=== PATIENT | female | born 1945 | race Caucasian/White ===

== ENCOUNTER → 2017-07-29 | Outpatient (CLI) | payer BC ==
[~2017-07-29] MED LIST: ASCA500 PO; ASPEC81 PO; CLTP PO; CYAN10005 PO; CYM/30 PO; FLM4 PO; GLC850 PO; LISI20TA PO; METH1TAB5 PO
--- NOTE | 2017-07-29 15:35 | MAMMOGRAPHY REPORT ---
BILATERAL DIGITAL SCREENING MAMMOGRAM WITH CAD: 07/29/2017 CLINICAL HISTORY: Routine screening. TECHNIQUE: Bilateral CC and MLO views were obtained. Current study was also evaluated with a Compute r Aided Detection (CAD) system. COMPARISON: Comparison is made to exams dated: 07/26/2016 mammogram, 07/25/2015 mammogram, 07/13/2014 mammogram, 07/09/2013 mammogram, 07/08/2012 mammogram, and 07/03/2011 mammogram - [facility]. BREAST COMPOSITION: The tissue of both breasts is almost entirely fatty. FINDINGS: There are scattered bilateral benign-appearing calcifications and minimal vascular calcific ation in the breasts. No suspicious mass, architectural distortion or cluster of microcalcifications is seen. IMPRESSION: ACR BI-RADS CATEGORY 1: NEGATIVE There is no mammographic evidence of malignancy. A 1 year screening mammogram is recommended. The pa tient will receive written notification of the results. Approximately 10% of breast cancers are not detected with mammography. A negative mammographic report should not delay biopsy if a clinically suggestive mass is present. Naa Perkins M.D. ay/:07/29/2017 15:16:26 Adjunct Professor: Tee Cabezas RT(R)(M), [facility] letter sent: Normal 1/2 BI-RADS Code: ACR BI-RADS Category 1: Negative
== END | disposition home or self-care (01) ==
LOC: C.MAMM 09:21
PROVIDERS: ATTEND Internal Medicine
DX: Z12.31 Encounter for screening mammogram for malignant neoplasm of breast (principal)

== ENCOUNTER 2018-04-23 09:28 | Inpatient (IN) | payer BC, OTHER ==
[2018-04-17 10:32] VITALS: BMI 26.0
[2018-04-23] VITALS (7 sets, daily range): BP systolic 155–190; BP diastolic 68–96; PULSE 67–94; TEMP 36.5–37.2; O2SAT 91–96; Ht 160 cm; Wt 68.2 kg
[~2018-04-23] VITALS: Ht 160 cm; Wt 68.2 kg
[~2018-04-23 09:28] MED LIST changes: +ALBU18002 INH; -ASCA500 PO; -ASPEC81 PO; +ASPI-319 PO; +CALC-354 PO; +CETI10TA10 PO; +CINN500C13 PO; -CLTP PO; +FERR1TAB61 PO; -GLC850 PO; +GLIM1TAB2 PO; +GLUCTAB18 PO; +LACTATED RINGER'S 1000ML 1,000 ML IV SCH; -LISI20TA PO; +METF850T10 PO; +METH-1305 PO; -METH1TAB5 PO; +MISCCAP80 PO; +OMEP20TA PO; +VST5 PO
[2018-04-23] MEDS ORDERED: ATROPINE SULFATE 0.1 MG/ML 5ML SYR IV PRN (10:30)
[2018-04-23] MEDS ORDERED: ONDANSETRON INJ 2 MG/ML 2 ML VIAL IV PRN ×2 (10:30→15:45)
[2018-04-23] MEDS ORDERED: EpHEDrine SULFATE INJ 50 MG/ML AMP IV PRN (10:30)
[2018-04-23] MEDS ORDERED: FENTANYL CITRATE INJ 50 MCG/1 ML 2 ML VIAL IV PRN (10:30)
[2018-04-23] MEDS ORDERED: ONDANSETRON INJ 2 MG/ML 2 ML VIAL ONE (10:31)
[2018-04-23] MEDS ORDERED: GLYCOPYRROLATE INJ 0.2 MG/ML VIAL ONE (10:31)
[2018-04-23] MEDS ORDERED: MIDAZOLAM HCL 1 MG/ML 2ML VIAL ONE (10:31)
[2018-04-23] MEDS ORDERED: PROPOFOL IV EMULSION 10 MG/ML 20 ML VIAL ONE (10:31)
[2018-04-23] MEDS ORDERED: NEOSTIGMINE METHYLSULFATE 5 MG/5 ML SYR ONE (10:31)
[2018-04-23] MEDS ORDERED: DEXAMETHASONE SOD INJ 4 MG/ML VIAL ONE (10:31)
[2018-04-23] MEDS ORDERED: LIDOCAINE HCL 2% 2 ML VIAL (20MG/ML) ONE (10:31)
[2018-04-23] MEDS ORDERED: FENTANYL CITRATE INJ 50 MCG/1 ML 2 ML VIAL ONE ×2 (10:31→16:37)
--- NOTE | 2018-04-23 13:31 | History & Physical Bridge Note ---
H&P Re-Evaluation Bridge Note: I have examined the patient, reviewed the History & Physical and in the interval since the performance of the History & Physical I have noted the following changes of clinical significance: No changes noted
[2018-04-23] MEDS ORDERED: SODIUM CHLORIDE 0.9% PF 50 ML VIAL ONE (13:34)
[2018-04-23] MEDS ORDERED: BUPIVACAINE LIPOSOME 1/3% 266 MG/20 ML VIAL ONE ×2 (13:34→14:12)
[2018-04-23] MEDS ORDERED: BUPIVACAINE 0.25% 30 ML VIAL ONE (13:34)
[2018-04-23] MEDS ORDERED: CEFAZOLIN SOD 1 GM VIAL ONE (14:19)
[2018-04-23] MEDS ORDERED: ROCURONIUM BROMIDE 10 MG/ML 5 ML VIAL ONE (15:14)
--- NOTE | 2018-04-23 15:27 | [facility] Post Operative Brief Note ---
Immediate Operative Summary Operative Date Apr 23, 2018. Pre-Operative Diagnosis Anterior mediastinal mass Post-Operative Diagnosis Same Procedure(s) Performed Robotic Assisted Right Video Thoracoscopy with Resection of Mediastinal Mass / thymectomy Surgeon Dr Scruggs Case Technician Surgeon(s) Daniel Maldonado PA-C Estimated Blood Loss 5ml Findings Consistent with Post-Op Diagnosis Specimens A. R3 lymph node Frozen section #1 anterior mediastinal mass, thymus sent out at 1520 Anesthesia Type General
[2018-04-23] MEDS: METOCLOPRAMIDE HCL INJ 5 MG/ML 2 ML VIAL IV. STA ×2 (15:35→16:35)
[2018-04-23] MEDS ORDERED: ALBUTEROL HFA 8 GM INHALER INH PRN (15:45)
[2018-04-23] MEDS ORDERED: MoRPHine SULFATE 2 MG/ML CARP IV PRN (15:45)
[2018-04-23] MEDS ORDERED: OXYCODONE HCL IR 5 MG TAB (IMMEDIATE RELEASE) PO PRN (15:45)
[2018-04-23] MEDS ORDERED: PHENYLEPHRINE 100MCG/ML 5ML SYR ONE (15:51)
--- NOTE | 2018-04-23 16:16 | DIAGNOSTIC IMAGING REPORT ---
CHEST ONE VIEW PORTABLE CLINICAL HISTORY: thymectomy postoperative evaluation COMPARISON STUDY: 03/21/2018 FINDINGS: Right-sided chest tube in good position. No significant postprocedural pneumothorax. Platelike atelectasis right upper lung. Slight interstitial change left base. IMPRESSION: Unremarkable postoperative chest. Plate like atelectasis right upper lung. Mild interstitial change left base. The above report was generated using voice recognition software. It may contain grammatical, syntax or spelling errors. Electronically signed by: Jair Salinas M.D. 04/23/2018 4:14 PM Dictated Date/Time: 04/23/2018 4:13 PM
[2018-04-23] MEDS ORDERED: HydrALAZINE HCL 20 MG/ML VIAL ONE (16:19)
[2018-04-23] MEDS ORDERED: HydrALAZINE HCL 20 MG/ML VIAL IV. STA (16:22)
--- NOTE | 2018-04-23 17:21 | Anesthesiology Progress Note ---
Anesthesia Post Op Note Date & Time Apr 23, 2018 at 17:21 Vital Signs Pain Intensity: 2 Vital Signs Past 12 Hours Date Time Temp Pulse Resp B/P (MAP) Pulse Ox O2 Delivery O2 Flow Rate FiO2 04/23/18 17:00 36.6 82 15 170/93 95 Nasal Cannula 2 Oxymask 04/23/18 16:50 63 13 166/71 95 Nasal Cannula 2 Oxymask 04/23/18 16:40 61 15 180/71 95 Nasal Cannula 2 Oxymask 04/23/18 16:30 63 19 192/78 93 Nasal Cannula 2 Oxymask 04/23/18 16:20 59 13 196/79 99 Oxymask 10 04/23/18 16:10 59 12 196/82 99 Oxymask 10 04/23/18 16:00 70 13 193/81 95 Oxymask 10 04/23/18 15:53 36.1 75 13 184/75 98 Oxymask 10 04/23/18 10:09 36.9 87 18 190/96 96 Room Air Notes Mental Status: alert / awake / arousable, participated in evaluation Pt Amnestic to Procedure: Yes Nausea / Vomiting: adequately controlled Pain: adequately controlled Airway Patency, RR, SpO2: stable & adequate BP & HR: stable & adequate Hydration State: stable & adequate Anesthetic Complications: no major complications apparent
--- NOTE | 2018-04-23 17:33 | OPERATIVE REPORT ---
DATE OF OPERATION: 04/23/2018 PREOPERATIVE DIAGNOSIS: Anterior mediastinal mass. 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 PROCEDURE: Robot-assisted right thoracoscopic excision of anterior mediastinal mass/thymectomy. SURGEON: New Scruggs MD RN SANE: CHRIS Alcantar (Ms. Maldonado was present the entire case, was at the patient's bedside while I was at the console, He also closed the skin incisions at conclusion.) ANESTHESIA: General anesthesia endotracheal intubation using a double lumen tube. SPECIFICS OF PROCEDURE AND FINDINGS: Deborah Galvin is a 72-year-old female who I was asked to see when she underwent a CT scan as part of workup when she was hospitalized and was found to have an anterior mediastinal mass. She went home and is improved and she has no symptoms from this. I saw her back and we have planned for surgery. I had a long talk with the patient in the office and in the hospital. On 04/23/2018, the patient underwent an uncomplicated robot-assisted right thoracoscopy with excision of this mass. We lost no blood. 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 It was completely encapsulated. I removed most of the thymus with this. She tolerated it well. She was extubated in the room. DESCRIPTION OF PROCEDURE: The patient was brought to the operating room and laid in supine position. General anesthesia induced and endotracheal intubation was performed with a double lumen tube. The patient was placed in the left lateral decubitus position. Right chest prepped and draped in usual sterile fashion. Appropriate antibiotics given and timeout taken. An incision was made at about the seventh interspace in the anterior axillary line and the inframammary crease. A 5-Estonian trocar was placed and then a 5 mm camera was placed and it could be seen we were in the pleural cavity. Carbon dioxide was insufflated. This isolated the lung quite nicely. We then placed a port at about the third interspace just above the breast and just anterior to the axilla. We also placed one in the mid axillary line. This is a 12 mm camera port. Placed a 12 mm assistance port in about the ninth interspace. Upon going in, I immediately picked up the thymus and using a cautery and retraction, I simply removed it off of the pericardium without difficulty. Then, I went up and pulled and completely unroofed this off of the aorta. We got up to the innominate vein. This mass was seen to be circumscribed and hard. I then divided the thymic fat and anterior mediastinal fat from the phrenic nerve on the right and peeled this all the way off. We really got into no bleeding. We then placed a 24-Estonian chest tube through the anterior port site directed to the apex. This was held on heavy silk suture. All of the ports were then removed. The chest tube was held in place with heavy silk suture, but 4-0 Monocryl was used to close all the port sites. She tolerated it very well. She was extubated in the room. We had negligible blood loss. She did not have an air leak at conclusion of the case. I attest to the content of the Intraoperative Record and any orders documented therein. Any exception s are noted below.
[2018-04-23] MEDS: ACETAMINOPHEN IV 1,000 MG in EMPTY BAG 0 ML IV SCH (18:55)
[2018-04-23] MEDS: INSULIN ASPART 100 UNITS/ML 3 ML PEN SC SCH ×2 (19:02→21:15)
[2018-04-23] MEDS ORDERED: TAMSULOSIN HCL 0.4 MG CAP PO SCH (21:00)
[2018-04-23] MEDS ORDERED: ASPIRIN 81 MG ECTAB PO SCH (21:00)
[2018-04-23] MEDS ORDERED: NON-FORMULARY MEDICATION (Glucosamine-Chondroitin (Osteo Bi-Flex Regular Str) 1 TAB) PO SCH (21:00)
[2018-04-23] MEDS ORDERED: CETIRIZINE HCL 10 MG TAB PO SCH (21:00)
[2018-04-23] MEDS ORDERED: CINNAMON 1000 MG PO SCH (21:00)
[2018-04-23] MEDS: DOCUSATE SODIUM 100 MG CAP PO SCH (21:12)
[2018-04-23] MEDS: METHENAMINE HIPPURATE 1 GM TAB PO SCH (21:12)
[2018-04-23] MEDS: METOCLOPRAMIDE HCL INJ 5 MG/ML 2 ML VIAL IV. SCH (23:46)
[2018-04-23] MEDS: SODIUM CHLORIDE 0.9% 1000ML 1,000 ML IV SCH (23:46)
[2018-04-24 01:15] VITALS: BP 139/78; PULSE 83; TEMP 36.9; O2SAT 93
[2018-04-24] MEDS ORDERED: NURSING DECISION MEDICATION ORDER SCH (01:15)
[2018-04-24] MEDS: ACETAMINOPHEN IV 1,000 MG in EMPTY BAG 0 ML IV SCH (02:06)
[2018-04-24 03:30] VITALS: BP 139/70; PULSE 84; TEMP 36.9; O2SAT 94
[2018-04-24] MEDS: SODIUM CHLORIDE 0.9% 1000ML 1,000 ML IV SCH (05:05)
[2018-04-24 05:53] VITALS: BP 139/75; PULSE 76; TEMP 36.8; O2SAT 97
[2018-04-24 06:17] LABS: HEMATOCRIT 36.1 % (37-47); MEAN CELL VOLUME 84.9 fL (80-100); MEAN CORPUSCULAR HEMOGLOBIN 28.2 pg (25-34); MEAN CORPUSCULAR HGB CONC 33.2 g/dl (32-36); MEAN PLATELET VOLUME 8.7 fL (7.4-10.4); PLATELET COUNT 191 K/uL (130-400); RED CELL DISTRIBUTION WIDTH CV 13.6 % (11.5-14.5); RED CELL DISTRIBUTION WIDTH SD 42.2 fL (36.4-46.3); WHITE BLOOD COUNT 11.89 K/uL (4.8-10.8)
[2018-04-24 06:45] LABS: CREATININE 0.89 mg/dl (0.60-1.20)
--- NOTE | 2018-04-24 07:33 | DIAGNOSTIC IMAGING REPORT ---
CHEST ONE VIEW PORTABLE CLINICAL HISTORY: 72 years-old Female presenting with thymectomy . TECHNIQUE: Portable upright AP view of the chest was obtained. COMPARISON: 04/23/2018. FINDINGS: Large bore right pleural drain terminates at the right apex. Cardiomediastinal silhouette top normal in size. Bandlike opacity at the left lung base and persistent focal opacity in the right upper lung. No right pneumothorax. No large effusion. Soft tissue emphysema noted at the right base of the neck. Degenerative changes of the thoracic spine. Upper abdomen normal. IMPRESSION: 1. Right pleural drain remains in place. No pneumothorax. 2. Unchanged opacities in the right upper lung and left lung base. No new infiltrate. 3. Borderline cardiomegaly. Electronically signed by: Robert Jade M.D. 04/24/2018 7:32 AM Dictated Date/Time: 04/24/2018 7:30 AM
[2018-04-24 07:53] VITALS: BP 162/77; PULSE 80; TEMP 36.8; O2SAT 95
[2018-04-24] MEDS: METOCLOPRAMIDE HCL INJ 5 MG/ML 2 ML VIAL IV. SCH (08:25)
[2018-04-24] MEDS: DOCUSATE SODIUM 100 MG CAP PO SCH (08:30)
[2018-04-24] MEDS: METHENAMINE HIPPURATE 1 GM TAB PO SCH (08:30)
[2018-04-24] MEDS ORDERED: CLC100 PO (08:40)
[2018-04-24] MEDS ORDERED: ULT/50 PO (08:40)
--- NOTE | 2018-04-24 08:44 | Discharge Instructions ---
Discharge Instructions Date of Service Apr 24, 2018. Admission Reason for Admission: Mediastinal Mass, Diabetes Discharge Discharge Diagnosis / Problem: Mediastinal Mass Discharge Goals Goal(s): Learn about illness Activity Recommendations Activity Limitations: as noted below Lifting Limitations: none 1. You may remove dressing in 3 days and shower thereafter. No tub baths. 2. Do not drive until cleared to do so by Dr. Scruggs. 3. DO not fly until cleared to do so by Dr. Scruggs. . Instructions / Follow-Up Instructions / Follow-Up 1. Office appointment with Dr. Scruggs in 1 week. Office will call you with date and time of appointment. Go to hospital 1 hour before appointment to have a chest-ray taken. Current Hospital Diet Patient's current hospital diet: Diabetes Type 2 Diet Discharge Diet Recommended Diet: Diabetes Type 2 Diet Procedures Procedures Performed: Robotic Assisted Right Video Thoracoscopy with Resection of Mediastinal Mass / thymectomy Pending Studies Studies pending at discharge: no Medical Emergencies . Who to Call and When: Medical Emergencies: If at any time you feel your situation is an emergency, please call 911 immediately. . Non-Emergent Contact Non-Emergency issues call your: Surgeon Call Non-Emergent contact if: you have a fever, your pain is not controlled, wound has increased drainage . "Provider Documentation" section prepared by Brayden Maldonado. .
[2018-04-24] MEDS ORDERED: ACETAMINOPHEN 325 MG TAB PO SCH (08:45)
[2018-04-24] MEDS ORDERED: ENOXAPARIN 40 MG/0.4 ML SYR SQ SCH (09:00)
[2018-04-24] MEDS ORDERED: DULOXETINE (CYMBALTA) 30 MG CAP PO SCH (09:00)
[2018-04-24] MEDS ORDERED: PANTOprazole SOD 40 MG TAB PO SCH (09:00)
[2018-04-24] MEDS ORDERED: ENALAPRIL MALEATE 5 MG TAB PO SCH (09:00)
[2018-04-24] MEDS ORDERED: FERROUS SULFATE 325 MG TAB PO SCH (09:00)
[2018-04-24] MEDS ORDERED: CYANOCOBALAMIN 500 MCG TAB (VIT B-12) PO SCH (09:00)
[2018-04-24] MEDS ORDERED: LACTOBACILLUS ACIDOPHILUS (FLORANEX) TAB PO SCH (09:00)
[2018-04-24] MEDS ORDERED: GLIMEPIRIDE 2 MG TAB PO SCH (09:00)
--- NOTE | 2018-04-24 09:12 | DIAGNOSTIC IMAGING REPORT ---
CHEST ONE VIEW PORTABLE CLINICAL HISTORY: 72 years-old Female presenting with tube removal . TECHNIQUE: Portable upright AP view of the chest was obtained. COMPARISON: 04/24/2018. FINDINGS: Interval removal of the right pleural drain. Soft tissue emphysema again noted at the right base of the neck and minimally along the right chest wall. Atherosclerosis of the thoracic aorta. Cardiac silhouette normal in size. Opacities at the left lung base and right upper lung unchanged. No right pneumothorax. Right lung clear. Degenerative changes of the thoracic spine. Upper abdomen normal. IMPRESSION: 1. Removal of the right pleural drain. No right pneumothorax. Electronically signed by: Robert Jade M.D. 04/24/2018 9:10 AM Dictated Date/Time: 04/24/2018 9:09 AM
[2018-04-24] MEDS: INSULIN ASPART 100 UNITS/ML 3 ML PEN SC SCH ×2 (09:35→12:06)
[2018-04-24 09:47] VITALS: BP 162/77; PULSE 80; TEMP 36.8; O2SAT 95
[2018-04-25] MEDS ORDERED: CALCIUM 600MG + VIT D 400 IU TAB PO SCH (09:00)
--- NOTE | 2018-04-30 06:08 | EDITING REQUIRED CODING QUERY ---
PATHOLOGY To promote full compliance with coding requirements relating to patient care, physician participation is requested in all cases of aggregate conveyor operator uncertainty. Please assist us with the question(s) below: Please review the Pathology report and please document any relevant diagnosis(es) below: Diagnosis(es): Thymoma Thank you! Glo Thurman
--- NOTE | 2018-05-01 21:40 | DISCHARGE SUMMARY ---
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 HOSPITAL COURSE: This is a delightful 72-year-old female that I met in the hospital when she was hospitalized with probable anaplasmosis. At any rate, she responded well and she looks very good, but CT scan was obtained of her chest and she was found to have a mass in her anterior mediastinum. It was rather small. We had a long discussion about this and I felt that resecting this would be the most prudent course of action. On 04/23/2018, the patient underwent an uncomplicated robot-assisted thoracoscopic excision of this anterior mediastinal mass. Frozen section was suspicious for a spindle cell thymoma. The patient did very well with this. We had essentially no blood loss. She had no air leak and she looked very good after surgery. Following morning, she looks very good, really no pain. Pulled her chest tube. Her incisions are clean. She is ambulating in the hallway. She was voiding well and was eating well. Her pain control was exceptional. We discharged her home. I will see her back in a week to go over final pathology results.
== END 2018-04-24 12:15 | disposition home or self-care (01) | DRG 804 ==
LOC: C.ACU 09:28 → C.MSN 13:30 → EDBEDREQ 16:32 → ENRESERV 17:03 → C.MSN 17:53
PROVIDERS: ADMIT Surgery; ATTEND Surgery
PROC: 8E0W4CZ Robotic Assisted Procedure of Trunk Region, Percutaneous Endoscopic Approach (ICD-10-PCS; principal; 2018-04-23 11:20)
PROC: 07B Lymphatic and Hemic Systems, Excision (ICD-10-PCS; principal; 2018-04-23 11:20)
DX: D15.0 Benign neoplasm of thymus (principal); E11.9 Type 2 diabetes mellitus without complications; Z87.891 Personal history of nicotine dependence; Z79.82 Long term (current) use of aspirin; Z79.899 Other long term (current) drug therapy

== ENCOUNTER → 2018-04-29 | Outpatient (CLI) | payer BC ==
[~2018-04-29] MED LIST changes: +CLC100 PO; -LACTATED RINGER'S 1000ML 1,000 ML IV SCH; +ULT/50 PO
--- NOTE | 2018-04-29 09:02 | DIAGNOSTIC IMAGING REPORT ---
CHEST 2 VIEWS ROUTINE CLINICAL HISTORY: Mediastinal mass. COMPARISON STUDY: Chest radiograph April 24, 2018. FINDINGS: There is no pneumothorax. There is a possible trace right pleural effusion. Linear left basilar opacity suggestive atelectasis. There is no evidence for pneumonia or pulmonary edema. Subcutaneous gas within the wall and neck has slightly diminished since exam of April 24, 2018. IMPRESSION: 1. No pneumothorax. Trace right pleural effusion. 2. Interval decrease in chest wall and neck subcutaneous gas. Electronically signed by: Lalito Niño M.D. 04/29/2018 9:01 AM Dictated Date/Time: 04/29/2018 8:58 AM
== END | disposition home or self-care (01) ==
LOC: C.RAD 08:25
PROVIDERS: ATTEND Surgery
DX: J98.59 Other diseases of mediastinum, not elsewhere classified (principal)

== ENCOUNTER 2019-07-04 08:49 | Inpatient (IN) ==
[2019-07-04] MEDS ORDERED: HYDROCODONE/ACETAMOPHEN 5/325MG TAB PO ONE (11:15)
[2019-07-04] MEDS ORDERED: ONDANSETRON 4 MG OD TAB PO STA (11:17)
[2019-07-04] MEDS: LIDOCAINE 5% 1 PATCH TD SCH (11:27)
[2019-07-04] MEDS ORDERED: IOVERSOL 100ml IV PRN (12:04)
[2019-07-04 12:05] LABS: iSTAT Creatinine 0.9 mg/dl (0.6-1.3); iSTAT Hemoglobin 13.3 g/dl (12.0-16.0); iSTAT Ionized Calcium 1.21 mmol/l (1.12-1.32)
--- NOTE | 2019-07-04 12:09 | Emergency Department Note ---
History of Present Illness General Chief complaint: Fall Stated complaint: FELL DOWN STAIRS, LT SIDE BACK PAIN, HIT HEAD History of Present Illness Maximum Pain Intensity: 10 This patient is a 73-year-old female who presents amatory to the emergency department for evaluation of posterior rib and back pain after a fall that occurred last night. The patient slipped on wooden stairs striking her back against the stairs when she fell. She is unsure if she hit her head. She did report feeling foggy afterwards. The patient does not take any anticoagulation. She took Aleve this morning with minimal pain relief. The pain in her back is sharp and stabbing in nature. Worse with deep inspiration. She denies any abdominal pain. No pain in her extremities. Home Medications Home Medications Medication Instructions Recorded Confirmed Type Caltrate 600 plus D 1 tab PO 3XWK 01/06/19 07/04/19 History Probiotic 3,000 mmu cells PO DAILY 01/06/19 07/04/19 History albuterol sulfate [ProAir HFA] 2 puff INHALATION QID PRN 01/06/19 07/04/19 History cinnamon bark [Cinnamon] 2 tab PO BID 01/06/19 07/04/19 History cyanocobalamin (vitamin B-12) 1,000 mcg PO DAILY 01/06/19 07/04/19 History duloxetine 30 mg PO QAM 01/06/19 07/04/19 History glimepiride 1 mg PO QAM 01/06/19 07/04/19 History glucosamine-chondroitin [Osteo 1 tab PO BID 01/06/19 07/04/19 History Bi-Flex] iron 130 mg PO DAILY 01/06/19 07/04/19 History metformin 850 mg PO BID 01/06/19 07/04/19 History methenamine hippurate 1 g PO BID 01/06/19 07/04/19 History omeprazole 20 mg PO QAM 01/06/19 07/04/19 History tamsulosin [Flomax] 0.4 mg PO DAILY 01/06/19 07/04/19 History aspirin 81 mg chewable tablet 81 mg PO QAM tab 06/05/19 07/04/19 History cetirizine [Zyrtec] 10 mg PO HS 07/04/19 07/04/19 History enalapril maleate [Vasotec] 5 mg PO DAILY 07/04/19 07/04/19 History Allergies Allergy/AdvReac Type Severity Reaction Status Date / Time simvastatin Allergy Intermediate LOSS Verified 06/09/19 10:33 MUSCLE TONE AND PAIN Psfrepb-Lzz-[id number] Reductase Allergy Intermediate LOSS OF Verified 06/09/19 10:33 Inhibitor MUSCLE TONE gabapentin Allergy Mild DIZZY, Verified 06/09/19 10:33 LISTLESS rofecoxib Allergy Mild DIZZY AND Verified 06/09/19 10:33 LISTLESS Sulfa (Sulfonamide Allergy Unknown CAN'T Verified 06/09/19 10:33 Antibiotics) REMEMBER Past Med/Surg History Medical History Anemia HX OF Anxiety Bulging disc Cancer THYMUS GLAND REMOVAL Diabetes mellitus, type 2 GERD (gastroesophageal reflux disease) Hyperlipidemia Hypertension HX OF Osteoarthritis Restless leg syndrome Surgical History H/O abdominal surgery TUBAL (REMOVED) History of cataract surgery LEFT History of colonoscopy History of endoscopic sinus surgery POLYPS REMOVED History of esophagogastroduodenoscopy (EGD) History of herniorrhaphy History of hysterectomy History of repair of rotator cuff RT History of surgery THYMUS GLAND REMOVAL History of tooth extraction Family History Mother Family history of diabetes mellitus Uncle Family hx of colon cancer Social History Preferred Language: Afghan Communication Ability: 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 Equipment Required: No Beliefs That Will Affect Care: None Current Living Situation: Alone Current Living Situation Comment: [facility] [employer] Other Information That Helps Us Care for You: No Feels Safe at Home: Yes Safety Concerns: Feels Safe At This Time Smoking Status: Former smoker Cigarettes Per Day: 10 ; Do You Dip or Chew T obacco: No ; Second Hand Exposure: No ; Hx Alcohol Use: No Hx Substance Use: No Review of Systems A total of 10 systems reviewed and were otherwise negative Physical Exam Vital Signs Vital Signs - 24 hr 07/04/19 08:57 07/04/19 11:04 07/04/19 13:37 Temperature 36.9 C Temperature Source Oral Sepsis Recent Fever Within 48 Hours No Sepsis Action Taken by Nursing No Action Required Pulse Rate 94 H Pulse Rate [Right Finger] 95 H 82 Pulse Rhythm [Right Finger] Regular Pulse Strength [Right Finger] Normal Respiratory Rate 20 20 18 Respiratory Effort / Characteristics Non-Labored Non-Labored Spontaneous Respiratory Depth Normal Normal Blood Pressure 187/80 H Blood Pressure [Right Arm] 148/82 H 132/79 Blood Pressure Mean 115 Blood Pressure Mean [Right Arm] 104 96 Blood Pressure Position [Right Arm] Sitting Pulse Oximetry 95 95 94 Oxygen Delivery Method Room Air Room Air Room Air Constitutional WD/WN, vitals as above Eyes EOM intact bilaterally ENMT external ear and nose normal, oropharynx normal Neck trachea midline Respiratory normal respiratory effort, lungs clear to auscultation Cardiovascular RRR, no murmur, no edema Gastrointestinal (Abdomen) normal bowel sounds, soft, nontender, no hepatosplenomegaly Musculoskeletal no cyanosis or clubbing, extremities motor strength 5/5 Tenderness to palpation noted over the left posterior mid rib cage. No crepitus noted. There is ecchymosis noted to the left flank. Skin no rashes, warm and dry Neurologic Alert and oriented x3. No focal motor deficits. No dooley signs or raccoon eyes. Psychiatric Acting appropriately Course The patient was seen and examined She was ordered [place] and Zofran for pain. She was also given a Lidoderm patch. Labs were collected. A saline lock was established. Imaging was performed and reviewed Upon reevaluation, the patient was more comfortable. We reviewed her results. She voiced understanding The patient was also seen and examined by my supervising physician I spoke with thoracic surgery in addition to the hospitalist service. They kindly agreed to evaluate the patient for possible inpatient management. Consultations Consultation #1: Dr. Scruggs Consultation #2: [facility] hospitalist service Administered Medications Cetirizine HCl (Zyrtec) 10 mg PO HS MAURICIO Stop: 08/03/19 20:59 Last Admin: 07/04/19 20:27 Dose: 10 mg Documented by: [id number] Hydromorphone HCl (Dilaudid) 0.5 mg IV Q4H PRN PRN Reason: Pain Stop: 07/18/19 15:43 Last Admin: 07/04/19 17:15 Dose: 0.5 mg Documented by: [id number] Insulin Aspart (Novolog Flexpen) 0 units SC ACHS MAURICIO Stop: 08/03/19 16:29 Last Admin: 07/04/19 20:49 Dose: Not Given Documented by: [id number] Cosigned by: [id number] Admin: 07/04/19 17:20 Dose: 7 units Documented by: [id number] Cosigned by: [id number] Ioversol (Optiray 320 100ml) 94 ml IV ONCE PRN PRN Reason: Interaction Checking Stop: 07/08/19 12:03 Last Admin: 07/04/19 12:05 Dose: 94 ml Documented by: [id number] Lidocaine (Lidoderm 5%) 1 patch TD QAM MAURICIO Stop: 08/03/19 11:14 Last Admin: 07/04/19 11:27 Dose: 1 patch Documented by: [id number] Methenamine Hippurate (Urex) 1 gm PO BID MAURICIO Stop: 08/03/19 20:59 Last Admin: 07/04/19 20:27 Dose: 1 gm Documented by: [id number] Miscellaneous (Remove Lidoderm Patch) 1 ea N/A DAILY@2100 [facility] Stop: 08/03/19 20:59 Last Admin: 07/04/19 20:27 Dose: 1 ea Documented by: [id number] Oxycodone/Acetaminophen (Percocet 5mg/325mg) 1 tab PO Q6H PRN PRN Reason: Pain Stop: 07/18/19 18:28 Last Admin: 07/04/19 20:26 Dose: 1 tab Documented by: [id number] Discontinued Medications Hydrocodone Bitart/Acetaminophen ([place] 5/325) 1 tab PO ONE ONE Stop: 07/04/19 11:16 Last Admin: 07/04/19 11:27 Dose: 1 tab Documented by: [id number] Ondansetron HCl (Zofran Odt) 4 mg PO NOW STA Stop: 07/04/19 11:18 Last Admin: 07/04/19 11:27 Dose: 4 mg Documented by: [id number] Medical Decision Making Medical Records Attestation: I reviewed the patient's medical records. Home Medications Current Medication List: was personally reviewed by me Laboratory Data Attestation: I reviewed the patient's lab results. Result diagrams: 07/04/19 14:53 Lab Results 07/04/19 07/04/19 07/04/19 Range/Units 11:45 14:14 14:14 POC Hgb 13.3 (12.0-16.0) g/dl POC Hct 39 (37-47) % PT 9.6 Cancelled (9.0-12.0) Seconds INR 0.9 Cancelled (0.9-1.1) POC Sodium 139 (135-144) mEq/L POC Potassium 4.0 (3.3-5.0) mEq/L POC Chloride 102 (101-112) mEq/L POC Total CO2 25 (24-31) mEq/l POC Anion Gap 17.0 (16-25) mmol/L POC BUN 23 H (7-18) mg/dl POC Creatinine 0.9 (0.6-1.3) mg/dl POC Glucose (other) 97 (70-99) mg/dl POC Ioniz Calcium Saul 1.21 (1.12-1.32) mmol/l Imaging Data Attestation: I personally reviewed and interpreted this imaging study as follows: Radiologist's Impression: CT thoracic and lumbar spine without contrast IMPRESSION: 1. No fractures within the thoracic or lumbar spine. 2. Nondisplaced left posterior fifth through eighth rib fractures. Electronically signed by: Valerio Lyon M.D. 07/04/2019 12:32 PM Dictated: 07/04/19 1225 Transcribed: 07/04/[address] head without contrast Impression: No acute intracranial abnormality. Electronically signed by: Valerio Lyon M.D. 07/04/2019 12:23 PM Dictated: 07/04/19 1221 Transcribed: 07/04/[address] chest, abdomen and pelvis with IV contrast IMPRESSION: 1. Left-sided fifth through eighth rib fractures as described above. There is an associated tiny left hemopneumothorax. 2. Small left gluteal subcutaneous contusion/hematoma,. Electronically signed by: Valerio Lyon M.D. 07/04/2019 12:49 PM Dictated: 07/04/19 1239 Transcribed: 07/04/19 1239 Blood Pressure Blood Pressure Findings: Elevated blood pressure Blood Pressure Disposition: elevated BP felt to be situational MDM Narrative Differential diagnosis: Rib fracture, contusion, intrathoracic injury, intra- abdominal injury. Skull fracture, spine fracture, intracranial bleed, among others This patient is a 73-year-old female presents emergency department with severe posterior rib pain after a fall down a few hardwood steps. The fall was mechanical in nature. On exam, she was slightly tachycardic. She was not hypoxic. Due to the bruising and amount of pain, imaging was felt to be warranted. This is consistent with left-sided rib fractures fifth through eighth with an associated small left hemopneumothorax. This was discussed with thoracic surgery. They were comfortable managing the patient here. The hospitalist service was consulted for possible inpatient management. Her vital signs remained stable in the emergency department. Impression & Plan Hemopneumothorax on left, Multiple fractures of ribs, left side, initial e ncounter for closed fracture Critical Care Time Critical Care Time: Yes Total Critical Care Time: 40 I have personally spent greater than 39 minutes of critical care time in the direct management of this patient. This includes bedside care, interpretation of diagnostic studies, and testing, discussion with consultants, patient, and family members, and other required patient management activities. This 40 lalo alexandru is in excess of all separately billable procedures. Discharge Plan Visit Data *Final* Discharge Date/Time: 07/04/19 15:21 Chief Complaint: Fall Stated Complaint: FELL DOWN STAIRS, LT SIDE BACK PAIN, HIT HEAD ED Provider: Da Yang ED Midlevel Provider: Alicia Han Discharge Problem: Hemopneumothorax on left, Multiple fractures of ribs, left side, initial encounter for closed fracture Patient Disposition: Admitted As Inpatient Condition: Serious Discharge Instructions Interventions: ED Discharge Assessment Last Done: 07/04/19 15:21
--- NOTE | 2019-07-04 12:22 | CT Scan Report ---
CERVICAL SPINE CT CT DOSE: HISTORY: neck pain fall TECHNIQUE: Multiaxial CT images of the cervical spine were performed and reformatted in the sagittal and coronal plane without the use of contrast. A dose lowering technique was utilized adhering to e principles of ALARA. COMPARISON: None. FINDINGS: Reversal of the normal lordotic curvature within the lower cervical spine. No acute fractur es identified. Severe disc space narrowing within the lower cervical spine. Prevertebral soft tissues and the C1-C2 interval are intact. IMPRESSION: No fractures within the cervical spine. Electronically signed by: Valerio Lyon M.D. 07/04/2019 12:21 PM
--- NOTE | 2019-07-04 12:24 | CT Scan Report ---
HEAD CT NONCONTRAST CT DOSE: HISTORY: head injury TECHNIQUE: Multiaxial CT images of the head were performed without the use of intravenous contrast. A utomated exposure control was utilized for this study. A dose lowering technique was utilized adheri ng to the principles of ALARA. Comparison: Head CT 08/28/2016. Findings: The paranasal sinuses and mastoid air cells are clear. The calvarium and skull base are int act. There is no mass, hematoma, midline shift, acute infarct. White matter hypodensity is nonspecifi c but suggestive of microvascular ischemic change. The ventricles and sulci demonstrate mild age-rela velma involutional changes. Impression: No acute intracranial abnormality. Electronically signed by: Valerio Lyon M.D. 07/04/2019 12:23 PM
--- NOTE | 2019-07-04 12:33 | CT Scan Report ---
THORACIC AND LUMBAR SPINE CT CT DOSE: 2314.60 mGy.cm HISTORY: mid and low back pain TECHNIQUE: Multiaxial CT images of the thoracic and lumbar spine were performed and reformatted in th e sagittal and coronal plane without the use of contrast. A dose lowering technique was utilized adh ering to the principles of ALARA. COMPARISON: None. FINDINGS: Mild S-shaped scoliosis of the thoracolumbar spine. Nondisplaced left posterior fifth throu gh eighth rib fractures. No fractures within the thoracic or lumbar spine. The visualized sacrum appe ars intact. IMPRESSION: 1. No fractures within the thoracic or lumbar spine. 2. Nondisplaced left posterior fifth through eighth rib fractures. Electronically signed by: Valerio Lyon M.D. 07/04/2019 12:32 PM
--- NOTE | 2019-07-04 12:51 | CT Scan Report ---
CHEST, ABDOMEN, PELVIS CT WITH CONTRAST CT DOSE: HISTORY: L posterior rib pain TECHNIQUE: Multiaxial CT images of the chest, abdomen, pelvis were performed following the intravenou s administration of contrast. A dose lowering technique was utilized adhering to the principles of A BRYANT. COMPARISON: Chest CT 05/22/2019. Abdomen and pelvis CT 03/22/2019. FINDINGS: Left posterior fifth through eighth rib fractures which demonstrate fractures along the pos terior lateral aspect of the ribs and also the rib heads. Tiny left hemopneumothorax. The central air ways are patent. Stable 4 mm nodule within the left upper lobe on image 127. Stable 2 mm nodule withi n the right lung apex. A few bibasilar linear densities consistent with subsegmental atelectasis. The mediastinal vascular structures are within normal limits. The heart is normal in size. No mediastina l or hilar lymphadenopathy. Normal esophagus. No pneumoperitoneum. No pneumatosis. Hepatic steatosis. The spleen, adrenal glands, kidneys, gallblad aly, and pancreas are unremarkable. No retroperitoneal lymphadenopathy. No pelvic fluid. Mild bladder wall thickening may be due to underdistention. There is mild pelvic floor collapse. The uterus is braden rgically absent. Colonic diverticulosis. No bowel wall thickening or obstruction. Small subcutaneous contusion within the left gluteal region with a 2 cm subcutaneous hematoma. IMPRESSION: 1. Left-sided fifth through eighth rib fractures as described above. There is an associated tiny left hemopneumothorax. 2. Small left gluteal subcutaneous contusion/hematoma,. Electronically signed by: Valerio Lyon M.D. 07/04/2019 12:49 PM
--- NOTE | 2019-07-04 13:24 | Emergency Department Note ---
ED Visit Note I did evaluate and examine this patient myself. I did guide management for the patient. I agree with the PA's assessment as discussed. Please see the PAs dictation for further details. I did independently review the CT scans and blood work. The patient fell down approximately 4 steps. She has 4 rib fractures on the left side with a tiny hemopneumothorax. No acute pathology is noted on the head, spine or abdomen pelvis. We will attempt to admit her here with consultation with thoracic surgery. If this is not acceptable she will be transferred to a trauma center. .
--- NOTE | 2019-07-04 14:31 | History & Physical Report ---
Date of Service July 04, 2019 Assessment & Plan (1) Status post fall: Status post mechanical fall, fell from 5 steps down 5 stairs at home No loss of consciousness CT scans of the abdomen/pelvis, thoracic spine, lumbar spine, head CT, and CT of the chest cervical spine CT was remarkable for Left-sided through eighth rib fractures fifth with associated small left hemopneumothorax small left gluteal subcutaneous contusion/hematoma Thoracic surgery has been consulted and will evaluate the patient tomorrow morning Hemodynamically stable without any significant symptoms at rest Has been admitted to medical telemetry Pain medication Aspirin is on hold for now (2) Multiple fractures of ribs, left side, initial encounter for closed fracture: Has a small left-sided hemopneumothorax Management exam as above Will get chest x-ray PA and lateral view in the morning Further management as per thoracic surgeon (3) Diabetes: Hold metformin Diabetic diet with SSI (4) HTN (hypertension): Continue current medications (5) Mediastinal mass: 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 Her stairs are partly carpeted except the last 5 steps down. When she has stepped on the first wooden stair she ended up with a fall. He did not lose any consciousness but she could not get up. She was helped to get up and did not have any significant pain and he stayed home overnight. This morning her daughter left for vacation and advised her to check out as because they are increasing pain with breathing and movement since this morning. At year she has noted to have left fifth through eighth rib fracture with associated with small left hemo-pneumothorax. Also a small left gluteal subcutaneous contusion/hematoma noted. Vascular surgery was contacted by the ER physician who will see the patient tomorrow morning until symptoms gets worse. She denies any significant symptoms during my examination today. Allergies Allergy/AdvReac Type Severity Reaction Status Date / Time simvastatin Allergy Intermediate LOSS Verified 06/09/19 10:33 MUSCLE TONE AND PAIN Slecnnq-[id number]-Qfv Reductase Allergy Intermediate LOSS OF Verified 06/09/19 10:33 Inhibitor MUSCLE TONE gabapentin Allergy Mild DIZZY, Verified 06/09/19 10:33 LISTLESS rofecoxib Allergy Mild DIZZY AND Verified 06/09/19 10:33 LISTLESS Sulfa (Sulfonamide Allergy Unknown CAN'T Verified 06/09/19 10:33 Antibiotics) REMEMBER Home Medications Home Medications Medication Instructions Recorded Confirmed Type Caltrate 600 plus D 1 tab PO [id number] 01/06/19 07/04/19 History Probiotic 3,000 mmu cells PO DAILY 01/06/19 07/04/19 History albuterol sulfate [ProAir HFA] 2 puff INHALATION QID PRN 01/06/19 07/04/19 History cinnamon bark [Cinnamon] 2 tab PO BID 01/06/19 07/04/19 History cyanocobalamin (vitamin B-12) 1,000 mcg PO DAILY 01/06/19 07/04/19 History duloxetine 30 mg PO QAM 01/06/19 07/04/19 History glimepiride 1 mg PO QAM 01/06/19 07/04/19 History glucosamine-chondroitin [Osteo 1 tab PO BID 01/06/19 07/04/19 History Bi-Flex] iron 130 mg PO DAILY 01/06/19 07/04/19 History metformin 850 mg PO BID 01/06/19 07/04/19 History methenamine hippurate 1 g PO BID 01/06/19 07/04/19 History omeprazole 20 mg PO QAM 01/06/19 07/04/19 History tamsulosin [Flomax] 0.4 mg PO DAILY 01/06/19 07/04/19 History aspirin 81 mg chewable tablet 81 mg PO QAM tab 06/05/19 07/04/19 History cetirizine [Zyrtec] 10 mg PO HS 07/04/19 07/04/19 History enalapril maleate [Vasotec] 5 mg PO DAILY 07/04/19 07/04/19 History Past Med/Surg History Medical History Anemia HX OF Anxiety Bulging disc Cancer THYMUS GLAND REMOVAL Diabetes mellitus, type 2 GERD (gastroesophageal reflux disease) Hyperlipidemia Hypertension HX OF Osteoarthritis Restless leg syndrome Surgical History H/O abdominal surgery TUBAL (REMOVED) History of cataract surgery LEFT History of colonoscopy History of endoscopic sinus surgery POLYPS REMOVED History of esophagogastroduodenoscopy (EGD) History of herniorrhaphy History of hysterectomy History of repair of rotator cuff RT History of surgery THYMUS GLAND REMOVAL History of tooth extraction Family History Mother Family history of diabetes mellitus Uncle Family hx of colon cancer Social History Preferred Language: Croatian Communication Ability: Effective Tooling Inspector Required: No Beliefs That Will Affect Care: None Current Living Situation: Alone Feels Safe at Home: Yes Smoking Status: Never smoker Cigarettes Per Day: 10 ; Second Hand Exposure: Yes (IN THE PAST) ; Hx Alcohol Use: No Hx Substance Use: No Review of Systems Review of Systems: All systems reviewed & are unremarkable except as noted in HPI & below Respiratory: + pain on inspiration; no dyspnea (At rest) and no hemoptysis Physical Exam Physical Exam: Lying in bed comfortably Constitutional: well developed and well nourished; no acute distress and not ill appearing Eyes: PERRL, conjunctivae normal, anicteric sclerae ENMT: external ear and nose normal, oropharynx normal Neck: trachea midline, no thyromegaly Respiratory: normal respiratory effort Auscultation: + diminished lung sounds (On the left side); no crackles and no rales Cardiovascular: Rate/Rhythm: regular rate and regular rhythm Heart Sounds: no murmur Gastrointestinal (Abdomen): Inspection/Auscultation: abdomen normal to inspection; abdomen not distended Percussion/Palpation: abdomen soft; abdomen nontender Musculoskeletal: No acute arthritis in any joints Neurologic: moves all extremities; no focal motor deficits Lymphatic: no cervical or axillary lymphadenopathy Results & Data Vital Signs (Past 12 Hours) Vital Signs Temp Pulse Pulse Resp BP BP Pulse Ox 07/04/19 13:37 82 18 132/79 94 07/04/19 11:04 95 H 20 148/82 H 95 07/04/19 08:57 36.9 C 94 H 20 187/80 H 95 Medications Administered Current Inpatient Medications Enalapril Maleate (Vasotec) 5 mg PO QAM [facility] Stop: 08/04/19 08:59 Ioversol (Optiray 320 100ml) 94 ml IV ONCE PRN PRN Reason: Interaction Checking Stop: 07/08/19 12:03 Last Admin: 07/04/19 12:05 Dose: 94 ml Documented by: Lidocaine (Lidoderm 5%) 1 patch TD QAM [facility] Stop: 08/03/19 11:14 Last Admin: 07/04/19 11:27 Dose: 1 patch Documented by: Miscellaneous (Remove Lidoderm Patch) 1 ea N/A DAILY@2100 [facility] Stop: 08/03/19 20:59 Code Status & VTE Plan Code Status Full code VTE Prophylaxis Plan VTE Prophylaxis will be ordered: Yes
[2019-07-04 15:00] LABS: Basophils # (auto) 0.02 K/uL (0-0.2); Basophils % (auto) 0.3 %; Eosinophils # (auto) 0.14 K/uL (0-0.5); Eosinophils % (auto) 2.1 %; Hematocrit (blood only) 36.9 % (37-47); Hemoglobin 12.1 g/dL (12.0-16.0); Immature Granulocytes # (auto) 0.02 K/uL (0.00-0.02); Immature Granulocytes % (auto) 0.3 %; Lymphocytes # (auto) 1.65 K/uL (1.2-3.4); Mean Corpuscular Hemoglobin 28.5 pg (25-34); Mean Corpuscular Hgb Conc 32.8 g/dL (32-36); Mean Corpuscular Volume 86.8 fL (80-100); Mean Platelet Volume 8.2 fL (7.4-10.4); Monocytes # (auto) 0.55 K/uL (0.11-0.59); Monocytes % (auto) 8.3 %; Neutrophils # (auto) 4.21 K/uL (1.4-6.5); Platelet Count 126 K/uL (130-400); RDW Coefficient of Variation 13.8 % (11.5-14.5); RDW Standard Deviation 43.5 fL (36.4-46.3); Red Blood Count 4.25 M/uL (4.2-5.4); White Blood Count 6.59 K/uL (4.8-10.8)
[2019-07-04 15:06] LABS: INR 0.9 (0.9-1.1); Prothrombin Time 9.6 Seconds (9.0-12.0)
[2019-07-04] MEDS ORDERED: DEXTROSE 50% 50 ML SYRINGE IV PRN (15:30)
[2019-07-04] MEDS ORDERED: GLUCAGON FOR INJ 1 MG VIAL IM PRN (15:30)
[2019-07-04] MEDS ORDERED: GLUCOSE 40% GEL 15 GM TUBE PO PRN (15:30)
[2019-07-04] MEDS ORDERED: GLUCOSE 10 TABS/TUBE PO PRN (15:30)
[2019-07-04] MEDS ORDERED: CARBOHYDRATES FOR HYPOGLYCEMIA PO PRN (15:30)
[2019-07-04] MEDS ORDERED: ALBUTEROL HFA 8 GM INHALER INH PRN (15:45)
[2019-07-04] MEDS ORDERED: PHARMACY GLYCEMIC MGMT CONSULT STA (16:17)
[2019-07-04] MEDS: HYDROmorphone INJ 0.5 MG/0.5 ML SYR IV PRN ×2 (17:15→23:25)
[2019-07-04] MEDS: INSULIN ASPART 100 UNITS/ML 3 ML PEN SC SCH ×2 (17:20→20:49)
[2019-07-04] MEDS: OXYCODONE/ACETAMINOPHEN 5mg/325mg TAB PO PRN (20:26)
[2019-07-04] MEDS: METHENAMINE HIPPURATE 1 GM TAB PO SCH (20:27)
[2019-07-04] MEDS: CETIRIZINE HCL 10 MG TABLET PO SCH (20:27)
[2019-07-04] MEDS ORDERED: NON-FORMULARY MEDICATION (Glucosamine-Chondroitin [Osteo Bi-Flex] 1 TAB) PO SCH (21:00)
[2019-07-04] MEDS ORDERED: CINNAMON BARK PO SCH (21:00)
[2019-07-05] MEDS: OXYCODONE/ACETAMINOPHEN 5mg/325mg TAB PO PRN ×3 (06:42→20:46)
[2019-07-05 06:49] LABS: Basophils # (auto) 0.02 K/uL (0-0.2); Basophils % (auto) 0.3 %; Eosinophils # (auto) 0.23 K/uL (0-0.5); Eosinophils % (auto) 3.6 %; Hematocrit (blood only) 37.4 % (37-47); Hemoglobin 12.2 g/dL (12.0-16.0); Immature Granulocytes # (auto) 0.03 K/uL (0.00-0.02); Immature Granulocytes % (auto) 0.5 %; Lymphocytes # (auto) 1.44 K/uL (1.2-3.4); Lymphocytes % (auto) 22.6 %; Mean Corpuscular Hemoglobin 28.8 pg (25-34); Mean Corpuscular Hgb Conc 32.6 g/dL (32-36); Mean Corpuscular Volume 88.4 fL (80-100); Mean Platelet Volume 8.7 fL (7.4-10.4); Monocytes % (auto) 9.4 %; Neutrophils # (auto) 4.04 K/uL (1.4-6.5); Neutrophils % (auto) 63.6 %; Platelet Count 147 K/uL (130-400); RDW Coefficient of Variation 13.8 % (11.5-14.5); RDW Standard Deviation 44.8 fL (36.4-46.3); Red Blood Count 4.23 M/uL (4.2-5.4); White Blood Count 6.36 K/uL (4.8-10.8)
[2019-07-05 07:18] LABS: BUN Creatinine Ratio 22.4 (10-20); Calcium 8.7 mg/dl (8.5-10.1); Creatinine Clr Calc Pharmacy 55.9 ml/min; Est GFR (African American) 75.5; Est GFR (Non-African American) 65.2; Potassium 3.9 mmol/L (3.5-5.1)
[2019-07-05] MEDS: DULOXETINE HCL 30 MG CAP PO SCH (08:19)
[2019-07-05] MEDS: TAMSULOSIN HCL 0.4 MG CAP PO SCH (08:19)
[2019-07-05] MEDS: CYANOCOBALAMIN 500 MCG TABLET (VITAMIN B-12) PO SCH (08:19)
[2019-07-05] MEDS: PANTOprazole 40 MG TAB PO SCH (08:19)
[2019-07-05] MEDS: ENALAPRIL MALEATE 5 MG TAB PO SCH (08:19)
[2019-07-05] MEDS: LACTOBACILLUS ACIDOPHILUS (FLORANEX) TAB PO SCH (08:19)
--- NOTE | 2019-07-05 08:19 | XRay Report ---
TWO VIEW CHEST CLINICAL HISTORY: Pneumothorax and rib fractures.. FINDINGS: PA and lateral chest radiographs are compared to study dated 04/24/2018 and correlated with chest CT dated 07/04/2019. The cardiomediastinal silhouette is unremarkable. The right lung appears cl ear. Fluid is seen in the left lung base with associated left basilar atelectasis. No pneumothorax is identified. The skeletal structures are osteopenic. Several left-sided rib fractures are again noted . There are healed right-sided rib fractures. IMPRESSION: 1. Left-sided rib fractures are again noted. 2. Trace fluid is again seen at the left lung base, likely representing hemothorax. 3. No pneumothorax is identified. Electronically signed by: Armaan Ya M.D. 07/05/2019 8:18 AM
[2019-07-05] MEDS: METHENAMINE HIPPURATE 1 GM TAB PO SCH ×2 (08:20→20:46)
[2019-07-05] MEDS: LIDOCAINE 5% 1 PATCH TD SCH (08:20)
[2019-07-05] MEDS: INSULIN ASPART 100 UNITS/ML 3 ML PEN SC SCH ×4 (08:23→20:47)
[2019-07-05] MEDS ORDERED: GLIMEPIRIDE 2 MG TAB PO SCH (09:00)
[2019-07-05] MEDS ORDERED: FERROUS SULFATE DRIED PO SCH (09:00)
--- NOTE | 2019-07-05 10:56 | Consultation Report ---
DATE OF CONSULTATION: 07/05/2019 REASON FOR CONSULTATION: Rib fractures with hemothorax. HISTORY OF PRESENT ILLNESS: The patient is a very nice 74-year-old female that I know well. On 04/13/2018, I performed a robot-assisted thoracoscopic thymectomy for a thymoma. Her margins were negative and she has done very well. In fact, I just saw her in the office on 06/09/[address] scan was reviewed and showed no evidence of recurrence. She is doing very well at that time and had just come back from a cruise in [place]. She was scheduled to go to the [employer] with her family and slipped at her daughter's house and fell down 5 steps suffering fractures to her left lower ribcage. She is in a considerable amount of pain; however, she is having no respiratory issues. This morning when I saw her, she had been sitting up in the chair. She just finished her breakfast. She states that when she coughs or takes a deep breath, she has significant amount of pain; however, she had no hemoptysis. I was asked to evaluate her for a hemothorax. PAST MEDICAL HISTORY: 1. History of thymoma. 2. Chronic obstructive pulmonary disease. 3. Diabetes mellitus. 4. Gastroesophageal reflux disease. PAST SURGICAL HISTORY: 1. Recent cataract extraction (02/03/2019). 2. Robot-assisted right thoracoscopic excision of a thymoma on 04/23/2018. MEDICATIONS: 1. Albuterol inhaler. 2. Aspirin. 3. Zyrtec. 4. Duloxetine. 5. Vasotec. 6. Glimepiride. 7. Metformin. 8. Omeprazole. 9. Flomax. 10. Methenamine. ALLERGIES: THE PATIENT STATES THAT STATINS, GABAPENTIN, NONSTEROIDAL ANTI-INFLAMMATORY AGENTS MAKE HER DIZZY, LISTLESS AND SHE LOSES MUSCLE TONE. SHE STATES THAT SHE IS ALLERGIC TO SULFA, BUT CANNOT REMEMBER HER RESPONSE. SOCIAL HISTORY: The patient is . She has 4 children, all are local. 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 She smoked lightly for several years, but quit decades ago. She is independent in her activities of daily living. FAMILY MEDICAL HISTORY: She had a daughter who had leukemia. She has a son with asthma. She has a sister with hepatitis and her father suffered from gout and hypertension. Her mother also had hiatal hernia. REVIEW OF SYSTEMS: The patient has been doing very well prior to this admission. She is scheduled to go on vacation. She has been doing very well until she fell. All in all, we have been quite pleased with how well she has felt. She denies chest pain before this accident. She has had no palpitations. She has had no nausea or vomiting. She has had no GI or symptoms. She has had no neurologic problems. She denies weight loss, fevers, or chills. She does wear glasses. PHYSICAL EXAMINATION: GENERAL: This is a 5 feet 5 inch, 160-pound female, who is awake, alert and oriented. HEENT: Her extraocular movements are intact. Wears glasses. Sclerae are anicteric. Tongue is midline. NECK: Supple. She has no supraclavicular or cervical lymphadenopathy or neck vein distention. She has no tracheal deviation. She has no carotid bruits. She has no axillary adenopathy. LUNGS: She does have decreased breath sounds in the left base. She has good aeration in the right lung field. She has no real crepitus, but has tenderness to palpation in the left lower lateral chest. CARDIOVASCULAR: She has a regular rate and rhythm of her heart. ABDOMEN: Soft, nontender except in her left upper quadrant which is probably related to her ribs. EXTREMITIES: She has no peripheral edema with good pulses. SKIN: Her right thoracoscopic incisions are well healed. NEUROLOGIC: She has no neurologic problems. DATA: I reviewed her CT scan and quite frankly this is a tiny amount of fluid / hemothorax. She has a minimal amount of fluid and no pneumothorax. Chest x-ray was performed this morning, which shows no pneumothorax and a minimal amount of fluid on the left. ASSESSMENT AND PLAN: Left blunt chest trauma with multiple rib fractures. At this point, I would keep her in the hospital for pain control for 1 more day and will get an x-ray in the morning and if that looks good, we will probably be able to discharge her. I think it is important for her to cough, use her incentive spirometer and ambulate. I discussed this with the staff. ADAM
--- NOTE | 2019-07-05 13:14 | Hospitalist Progress Note ---
Date of Service July 05, 2019 Assessment & Plan (1) Blunt chest trauma: (2) Hemopneumothorax on left: (3) Multiple fractures of ribs, left side, initial encounter for closed fracture: Left chest wall TTP with several rib fractures and small hemothorax. Holding ASA. Supportive care per thoracics. (4) Diabetes: Hold metformin Diabetic diet with SSI (5) Depression: stable, cont cymbalta per home regimen. (6) DVT prophylaxis: SCDs Full Dispo-to home when medically stable, poss in am. Mahnaz Kaba DO [facility] Hospitalist Subjective 74 yo F presented with L sided blunt chest trauma after a slip and fall down 5 steps at home. Residual injuries today include multiple broken ribs on the left chest wall associated with a small hemothorax which wa sevaluated by thoracic surgery. Supportive care was recommended. She is expectantly tender in this area. Additionally, she has a 6-10 cm area of ecchymosis on her L glute that is uncomfortable. She also has some neck soreness. She is otherwise doing well denying other symptoms. Review of Systems Review of Systems: All systems reviewed & are unremarkable except as noted in HPI & below Physical Exam Physical Exam: CONSTITUTIONAL: WNWD, vitals as above, generally well- appearing EYES: normal conjunctivae, no scleral icterus ENT: MMM RESPIRATORY: clear to auscultation bilaterally, no crackles, rales or wheezes, guarded respiratory effort 2/2 pain CARDIOVASCULAR: regular rate and rhythm, S1 and 2 heard without murmurs, gallops or rubs, no JVD, no peripheral edema CHEST: significant TTP on left chest wall GASTROINTESTINAL: normal bowel sounds, soft, nontender, nondistended MUSCULOSKELETAL: strength 5/5 throughout, head is normocephalic and atraumatic, neck supple SKIN: warm and dry, ecchymosis on L buttock NEUROLOGIC: CN 2-12 grossly intact, normal cognition, no gross focal deficits. PSYCHIATRIC: alert cooperative and oriented to person, place and time. Results & Data Vital Signs (Past 12 Hours) Vital Signs Temp Pulse Pulse Resp BP Pulse Ox 07/05/19 11:00 36.6 C 80 18 118/71 92 07/05/19 08:00 85 07/05/19 07:00 37.1 C 86 139/79 91 07/05/19 04:00 36.5 C 80 18 120/60 Laboratory Results Short CBC 07/04/19 07/05/19 Range/Units 14:53 06:21 WBC 6.59 6.36 (4.8-10.8) K/uL Hgb 12.1 12.2 (12.0-16.0) g/dL Hct 36.9 L 37.4 (37-47) % Plt Count 126 L 147 (130-400) K/uL BMP 07/05/19 06:21 Sodium 140 Potassium 3.9 Chloride 105 Carbon Dioxide 28 BUN 20 H Creatinine 0.87 Glucose 137 H Calcium 8.7 Medications Administered Current Inpatient Medications Albuterol (Ventolin Hfa) 2 puffs INH Q6H PRN PRN Reason: Shortness Of Breath Stop: 08/03/19 15:44 Cetirizine HCl (Zyrtec) 10 mg PO HS [facility] Stop: 08/03/19 20:59 Last Admin: 07/04/19 20:27 Dose: 10 mg Documented by: Cyanocobalamin (Vitamin B-12) 1,000 mcg PO DAILY [facility] Stop: 08/04/19 08:59 Last Admin: 07/05/19 08:19 Dose: 1,000 mcg Documented by: Dextrose (Dextrose 50%) 25 - 50 ml IV UD PRN; Protocol PRN Reason: Hypoglycemia Protocol Stop: 08/03/19 15:29 Duloxetine HCl (Cymbalta) 30 mg PO QAM [facility] Stop: 08/04/19 08:59 Last Admin: 07/05/19 08:19 Dose: 30 mg Documented by: Enalapril Maleate (Vasotec) 5 mg PO QAM [facility] Stop: 08/04/19 08:59 Last Admin: 07/05/19 08:19 Dose: 5 mg Documented by: Glucagon (Glucagen) 1 mg IM UD PRN; Protocol PRN Reason: Hypoglycemia Protocol Stop: 08/03/19 15:29 Glucose (Glucose 40%) 15 - 30 gm PO UD PRN; Protocol PRN Reason: Hypoglycemia Protocol Stop: 08/03/19 15:29 Glucose (Dex4 Glucose) 4 - 8 tabs PO UD PRN; Protocol PRN Reason: Hypoglycemia Protocol Stop: 08/03/19 15:29 Hydromorphone HCl (Dilaudid) 0.5 mg IV Q4H PRN PRN Reason: Pain Stop: 07/18/19 15:43 Last Admin: 07/04/19 23:25 Dose: 0.5 mg Documented by: Insulin Aspart (Novolog Flexpen) 0 units SC ACHS [facility] Stop: 08/03/19 16:29 Last Admin: 07/05/19 12:50 Dose: 9 units Documented by: Ioversol (Optiray 320 100ml) 94 ml IV ONCE PRN PRN Reason: Interaction Checking Stop: 07/08/19 12:03 Last Admin: 07/04/19 12:05 Dose: 94 ml Documented by: Lactobacillus Acidophilus (Floranex) 4 tab PO DAILY [facility] Stop: 08/04/19 08:59 Last Admin: 07/05/19 08:19 Dose: 4 tab Documented by: Lidocaine (Lidoderm 5%) [facility] [place] Stop: 08/03/19 11:14 Last Admin: 07/05/19 08:20 Dose: 1 patch Documented by: Methenamine Hippurate (Urex) 1 gm PO BID [facility] Stop: 08/03/19 20:59 Last Admin: 07/05/19 08:20 Dose: 1 gm Documented by: Miscellaneous (Remove Lidoderm Patch) 1 ea N/A DAILY@2100 [facility] Stop: 08/03/19 20:59 Last Admin: 07/04/19 20:27 Dose: 1 ea Documented by: Miscellaneous (Carbohydrates For Hypoglycemia) 15 - 30 gm PO UD PRN PRN Reason: Hypoglycemia Treatment Stop: 08/03/19 15:29 Multivitamins/Minerals (Caltrate Plus) 1 tab PO MoWeFr@0900 [facility] Stop: 08/05/19 08:59 Oxycodone/Acetaminophen (Percocet 5mg/325mg) 1 tab PO Q6H PRN PRN Reason: Pain Stop: 07/18/19 18:28 Last Admin: 07/05/19 12:53 Dose: 1 tab Documented by: Pantoprazole Sodium (Protonix) 40 mg PO QAM [facility]; Protocol Stop: 08/04/19 08:59 Last Admin: 07/05/19 08:19 Dose: 40 mg Documented by: Tamsulosin HCl (Flomax) 0.4 mg PO DAILY [facility] Stop: 08/04/19 08:59 Last Admin: 07/05/19 08:19 Dose: 0.4 mg Documented by:
[2019-07-05] MEDS: HYDROmorphone INJ 0.5 MG/0.5 ML SYR IV PRN ×2 (15:47→23:50)
[2019-07-05 17:30] LABS: Appearance Urine Cloudy (Clear); Bacteria Urine Automated 4+ (Negative); Bilirubin Urine Negative (Negative); Blood Urine Negative (Negative); Color Urine Yellow; Glucose Urine UA 2+ (Negative); Ketones Urine Negative (Negative); Leukocyte Esterase Urine 2+ (Negative); Nitrite Urine Positive (Negative); Protein Urine Negative (Negative); RBC Urine Automated 0-4 /hpf (0-4); Specific Gravity Urine 1.018 (1.000-1.030); Urobilinogen Urine Negative (Negative); WBC Urine Automated >30 /hpf (0-5); pH Urine 5.5 (4.5-7.5)
[2019-07-05] MEDS: CETIRIZINE HCL 10 MG TABLET PO SCH (20:46)
[2019-07-06] MEDS: HYDROmorphone INJ 0.5 MG/0.5 ML SYR IV PRN (05:18)
[2019-07-06 06:46] LABS: Hematocrit (blood only) 36.8 % (37-47); Mean Corpuscular Hemoglobin 28.9 pg (25-34); Mean Corpuscular Hgb Conc 32.6 g/dL (32-36); Mean Corpuscular Volume 88.7 fL (80-100); Mean Platelet Volume 8.6 fL (7.4-10.4); Platelet Count 156 K/uL (130-400); RDW Coefficient of Variation 13.7 % (11.5-14.5); RDW Standard Deviation 44.9 fL (36.4-46.3); Red Blood Count 4.15 M/uL (4.2-5.4); White Blood Count 7.19 K/uL (4.8-10.8)
--- NOTE | 2019-07-06 08:38 | XRay Report ---
XR chest 1V portable HISTORY: hemothorax COMPARISON: Chest 07/05/2019. FINDINGS: Nondisplaced left-sided rib fractures are again noted. Trace left pleural effusion, unchang ed. A few left basilar linear densities consistent with subsegmental atelectasis. This is also unchan ged. The heart is normal in size. The right lung is clear. No pneumothorax. IMPRESSION: Left-sided rib fractures and a trace left pleural effusion/hemothorax are not significantly changed. Electronically signed by: Valerio Lyon M.D. 07/06/2019 8:37 AM
[2019-07-06] MEDS: METHENAMINE HIPPURATE 1 GM TAB PO SCH (08:39)
[2019-07-06] MEDS: ENALAPRIL MALEATE 5 MG TAB PO SCH (08:40)
[2019-07-06] MEDS: CYANOCOBALAMIN 500 MCG TABLET (VITAMIN B-12) PO SCH (08:40)
[2019-07-06] MEDS: TAMSULOSIN HCL 0.4 MG CAP PO SCH (08:40)
[2019-07-06] MEDS: DULOXETINE HCL 30 MG CAP PO SCH (08:40)
[2019-07-06] MEDS: LACTOBACILLUS ACIDOPHILUS (FLORANEX) TAB PO SCH (08:41)
[2019-07-06] MEDS: PANTOprazole 40 MG TAB PO SCH (08:41)
[2019-07-06] MEDS: LIDOCAINE 5% 1 PATCH TD SCH (08:44)
[2019-07-06] MEDS: INSULIN ASPART 100 UNITS/ML 3 ML PEN SC SCH ×4 (08:45→20:29)
[2019-07-06] MEDS ORDERED: CALCIUM 600MG + VIT D 400 IU TAB PO SCH (09:00)
[2019-07-06] MEDS ORDERED: cefTRIAXone SODIUM 1,000 MG in DEXTROSE 5% 50 ML IV SCH (09:00)
[2019-07-06] MEDS ORDERED: POLYETHYLENE (MIRALAX) 17 GM PACK PO PRN (10:40)
--- NOTE | 2019-07-06 11:13 | Hospitalist Progress Note ---
Date of Service July 06, 2019 Assessment & Plan (1) Blunt chest trauma: (2) Hemopneumothorax on left: (3) Multiple fractures of ribs, left side, initial encounter for closed fracture: Left chest wall TTP with several rib fractures and small hemothorax. Holding ASA. Supportive care per thoracics. (4) E. coli UTI: Hold methenamine. Rocephin empirically pending culture results. (5) Diabetes: Hold metformin Diabetic diet with SSI (6) Depression: stable, cont cymbalta per home regimen. (7) DVT prophylaxis: SCDs Full Dispo-to home when medically stable, poss in am. Mahnaz Kaba DO [facility] Hospitalist Subjective doing well with expected pain this morning cleared for dc per thoracic surgery using IV pain medication overnight not ambulating well in general and lives alone-not seen by PT/OT yet. otherwise doing well, tolerating PO Review of Systems Review of Systems: All systems reviewed & are unremarkable except as noted in HPI & below Physical Exam Physical Exam: CONSTITUTIONAL: WNWD, vitals as above, generally well- appearing EYES: normal conjunctivae, no scleral icterus ENT: MMM RESPIRATORY: clear to auscultation bilaterally, no crackles, rales or wheezes, guarded respiratory effort 2/2 pain CARDIOVASCULAR: regular rate and rhythm, S1 and 2 heard without murmurs, ga llops or rubs, no JVD, no peripheral edema CHEST: significant TTP on left chest wall GASTROINTESTINAL: normal bowel sounds, soft, nontender, nondistended MUSCULOSKELETAL: strength 5/5 throughout, head is normocephalic and atraumatic, neck supple SKIN: warm and dry, ecchymosis on L buttock that is increased today in surface area covered. NEUROLOGIC: CN 2-12 grossly intact, normal cognition, no gross focal deficits. PSYCHIATRIC: alert cooperative and oriented to person, place and time. Results & Data Vital Signs (Past 12 Hours) Vital Signs Temp Pulse Pulse Resp BP BP Pulse Ox 07/06/19 07:23 37.4 C 80 18 139/66 91 07/06/19 03:28 36.7 C 78 20 135/78 92 07/06/19 00:31 36.9 C 80 20 182/93 H 94 07/06/19 00:15 78 Laboratory Results Short CBC 07/06/19 Range/Units 06:21 WBC 7.19 (4.8-10.8) K/uL Hgb 12.0 (12.0-16.0) g/dL Hct 36.8 L (37-47) % Plt Count 156 (130-400) K/uL Urine 07/05/19 Range/Units 17:15 Urine Color Yellow Urine Appearance Cloudy A (Clear) Urine pH 5.5 (4.5-7.5) Ur Specific [place] 1.018 (1.000-1.030) Urine Protein Negative (Negative) Urine Glucose (UA) 2+ H (Negative) Medications Administered Current Inpatient Medications Albuterol (Ventolin Hfa) 2 puffs INH Q6H PRN PRN Reason: Shortness Of Breath Stop: 08/03/19 15:44 Cetirizine HCl (Zyrtec) 10 mg PO HS [facility] Stop: 08/03/19 20:59 Last Admin: 07/05/19 20:46 Dose: 10 mg Documented by: Cyanocobalamin (Vitamin B-12) 1,000 mcg PO DAILY [facility] Stop: 08/04/19 08:59 Last Admin: 07/06/19 08:40 Dose: 1,000 mcg Documented by: Dextrose (Dextrose 50%) 25 - 50 ml IV UD PRN; Protocol PRN Reason: Hypoglycemia Protocol Stop: 08/03/19 15:29 Docusate Sodium (Colace) 100 mg PO BID [facility] Stop: 08/05/19 10:44 Duloxetine HCl (Cymbalta) 30 mg PO QAM [facility] Stop: 08/04/19 08:59 Last Admin: 07/06/19 08:40 Dose: 30 mg Documented by: Enalapril Maleate (Vasotec) 5 mg PO QAM [facility] Stop: 08/04/19 08:59 Last Admin: 07/06/19 08:40 Dose: 5 mg Documented by: Glucagon (Glucagen) 1 mg IM UD PRN; Protocol PRN Reason: Hypoglycemia Protocol Stop: 08/03/19 15:29 Glucose (Glucose 40%) 15 - 30 gm PO UD PRN; Protocol PRN Reason: Hypoglycemia Protocol Stop: 08/03/19 15:29 Glucose (Dex4 Glucose) 4 - 8 tabs PO UD PRN; Protocol PRN Reason: Hypoglycemia Protocol Stop: 08/03/19 15:29 Hydromorphone HCl (Dilaudid) 0.5 mg IV Q4H PRN PRN Reason: Pain Stop: 07/18/19 15:43 Last Admin: 07/06/19 05:18 Dose: 0.5 mg Documented by: Ceftriaxone Sodium 1,000 mg/ (Dextrose) 50 mls @ 100 mls/hr IV Q24H [facility]; Protocol Stop: 07/11/19 08:59 Last Infusion: 07/06/19 10:29 Dose: Infused Documented by: Insulin Aspart (Novolog Flexpen) 0 units SC ACHS [facility] Stop: 08/03/19 16:29 Last Admin: 07/06/19 08:45 Dose: 5 units Documented by: Ioversol (Optiray 320 100ml) 94 ml IV ONCE PRN PRN Reason: Interaction Checking Stop: 07/08/19 12:03 Last Admin: 07/04/19 12:05 Dose: 94 ml Documented by: Lactobacillus Acidophilus (Floranex) 4 tab PO DAILY [facility] Stop: 08/04/19 08:59 Last Admin: 07/06/19 08:41 Dose: 4 tab Documented by: Lidocaine (Lidoderm 5%) 1 patch TD [facility] Stop: 08/03/19 11:14 Last Admin: 07/06/19 08:44 Dose: 1 patch Documented by: Miscellaneous (Remove Lidoderm Patch) 1 ea N/A DAILY@2100 [facility] Stop: 08/03/19 20:59 Last Admin: 07/05/19 20:46 Dose: 1 ea Documented by: Miscellaneous (Carbohydrates For Hypoglycemia) 15 - 30 gm PO UD PRN PRN Reason: Hypoglycemia Treatment Stop: 08/03/19 15:29 Multivitamins/Minerals (Caltrate Plus) 1 tab PO MoWeFr@0900 [facility] Stop: 08/05/19 08:59 Last Admin: 07/06/19 08:39 Dose: 1 tab Documented by: Oxycodone/Acetaminophen (Percocet 5mg/325mg) 1 tab PO Q6H PRN PRN Reason: Pain Stop: 07/18/19 18:28 Last Admin: 07/05/19 20:46 Dose: 1 tab Documented by: Pantoprazole Sodium (Protonix) 40 mg PO QAM [facility]; Protocol Stop: 08/04/19 08:59 Last Admin: 07/06/19 08:41 Dose: 40 mg Documented by: Polyethylene Glycol (Miralax Powder Packet) 17 gm PO BID PRN PRN Reason: Constipation Stop: 08/05/19 10:39 Tamsulosin HCl (Flomax) 0.4 mg PO DAILY [facility] Stop: 08/04/19 08:59 Last Admin: 07/06/19 08:40 Dose: 0.4 mg Documented by:
[2019-07-06] MEDS: DOCUSATE SODIUM 100 MG CAP PO SCH ×2 (11:16→20:29)
[2019-07-06] MEDS: OXYCODONE/ACETAMINOPHEN 5mg/325mg TAB PO PRN ×2 (15:05→21:15)
--- NOTE | 2019-07-06 16:58 | Progress Note ---
DATE: 07/06/2019 Ms. Galvin was seen today. She is still having pain. Her x-ray looks quite good. She is on room air. I think moving forward, she is simply going to require good pain control. I would like to see her back in the office in next 1-2 weeks after she is discharged. I do not think this is going to present a problem for her.
[2019-07-06] MEDS: CETIRIZINE HCL 10 MG TABLET PO SCH (20:28)
[2019-07-07] MEDS: HYDROmorphone INJ 0.5 MG/0.5 ML SYR IV PRN (00:09)
[2019-07-07] MEDS: OXYCODONE/ACETAMINOPHEN 5mg/325mg TAB PO PRN ×2 (07:24→14:25)
[2019-07-07] MEDS: DOCUSATE SODIUM 100 MG CAP PO SCH (07:26)
[2019-07-07] MEDS: DULOXETINE HCL 30 MG CAP PO SCH (07:27)
[2019-07-07] MEDS: LACTOBACILLUS ACIDOPHILUS (FLORANEX) TAB PO SCH (07:28)
[2019-07-07] MEDS: CYANOCOBALAMIN 500 MCG TABLET (VITAMIN B-12) PO SCH (07:29)
[2019-07-07] MEDS: ENALAPRIL MALEATE 5 MG TAB PO SCH (07:29)
[2019-07-07] MEDS: PANTOprazole 40 MG TAB PO SCH (07:30)
[2019-07-07] MEDS: TAMSULOSIN HCL 0.4 MG CAP PO SCH (07:31)
[2019-07-07] MEDS: LIDOCAINE 5% 1 PATCH TD SCH (07:31)
[2019-07-07] MEDS: INSULIN ASPART 100 UNITS/ML 3 ML PEN SC SCH ×2 (08:58→12:27)
[2019-07-07] MEDS ORDERED: NITROFURANTOIN MONOHYDRATE 100 MG CAP PO SCH (09:00)
--- NOTE | 2019-07-07 11:25 | Discharge Summary ---
Date of Service July 07, 2019 Admission HPI Per Admitting Provider She is a 73-year-old female with significant past medical history of type 2 diabetes, osteoporosis, osteoarthritis of hip, high blood pressure has had a fall last evening while coming down the stairs at home. Her stairs are partly carpeted except the last 5 steps down. When she has stepped on the first wooden stair she ended up with a fall. He did not lose any consciousness but she could not get up. She was helped to get up and did not have any significant pain and he stayed home overnight. This morning her daughter left for vacation and advised her to check out as because they are increasing pain with breathing and movement since this morning. At year she has noted to have left fifth through eighth rib fracture with associated with small left hemo-pneumothorax. Also a small left gluteal subcutaneous contusion/hematoma noted. Vascular surgery was contacted by the ER physician who will see the patient tomorrow morning until symptoms gets worse. She denies any significant symptoms during my examination today. Admission Exam Per Admitting Provider Physical Exam: Lying in bed comfortably Constitutional: well developed and well nourished; no acute distress and not ill appearing Eyes: PERRL, conjunctivae normal, anicteric sclerae ENMT: external ear and nose normal, oropharynx normal Neck: trachea midline, no thyromegaly Respiratory: normal respiratory effort Auscultation: + diminished lung sounds (On the left side); no crackles and no rales Cardiovascular: Rate/Rhythm: regular rate and regular rhythm Heart Sounds: no murmur Gastrointestinal (Abdomen): Inspection/Auscultation: abdomen normal to inspection; abdomen not distended Percussion/Palpation: abdomen soft; abdomen nontender Musculoskeletal: No acute arthritis in any joints Neurologic: moves all extremities; no focal motor deficits Lymphatic: no cervical or axillary lymphadenopathy Principal Diagnosis Fall with multiple rib fractures and small hemothorax E coli UTI Discharge Data Allergies Allergy/AdvReac Type Severity Reaction Status Date / Time simvastatin Allergy Intermediate LOSS Verified 06/09/19 10:33 MUSCLE TONE AND PAIN Pyqsvvg-Tra-Mff Reductase Allergy Intermediate LOSS OF Verified 06/09/19 10:33 Inhibitor MUSCLE TONE gabapentin Allergy Mild DIZZY, Verified 06/09/19 10:33 LISTLESS rofecoxib Allergy Mild DIZZY AND Verified 06/09/19 10:33 LISTLESS Sulfa (Sulfonamide Allergy Unknown CAN'T Verified 06/09/19 10:33 Antibiotics) REMEMBER Consultations 07/04/19 14:46 Consult Thoracic Surgery Stat Ordered Studies 07/04/19 11:15 CT abd pelvis IV con only Stat CT cervical spine wo con Stat CT chest w con Stat CT head/brain wo con Stat CT lumbar spine wo con Stat CT thoracic spine wo con Stat Hospital Course (1) Blunt chest trauma: (2) Hemopneumothorax on left: (3) Multiple fractures of ribs, left side, initial encounter for closed fracture: (4) E. coli UTI: 74-year-old female presented to the ER status post mechanical fall down some steps at home. She was admitted to the hospitalist service and thoracic surgery was consulted as CT of the chest revealed a small hemo-pneumothorax on the left. Physical exam also revealed a small left gluteal hematoma. Multiple imaging studies including a CT of the cervical spine, lumbar spine, and thoracic spine revealed no evidence of fracture. Abdominal and pelvis CT revealed left- sided fifth through eighth rib fractures with a tiny left hemopneumothorax and small left gluteal subcutaneous contusion/hematoma. Head CT was negative for acute intracranial abnormality. Thoracic surgery recommendations included supportive care, and she did well on a lidocaine patch and narcotic medications. Throughout her hospitalization she did not have any hypoxia or increased work of breathing. She was examined evaluated by physical and Occupational Therapy who deemed her safe to go home. She was sent home on baby aspirin as previously prescribed and with permission to use OTC NSAIDs as needed for pain control. At time of discharge a [id number] examination was performed revealing hemodynamically stable and afebrile patient who had pain that was controlled with lidocaine patch and narcotic pain medication. Physical exam was remarkable for a left-sided area of ecchymosis consistent with a gluteal contusion and significantly tender left lateral chest wall. Exam was otherwise unremarkable. She was mentating and ambulating at baseline and tolerating p.o. She was discharged in stable condition with close primary care follow-up recommended. Of note, work-up revealed a urinalysis with bacteria and subsequent culture results revealed a pansensitive E. coli. Her methenamine was on hold as this was nonformulary and she was given Rocephin empirically. After results were back she was transitioned to Macrobid for 5 days. She will hold methenamine during this time and restart with primary care as advised. Total Time Total Time Spent Total Time Spent (In Minutes): 60 Total Time Includes: Examination of the Patient, Discharge Planning, Medication Reconciliation, Communication With Other Providers and Other (arrange outpatient followup) Discharge Plan Discharge Items Patient Disposition: Home - Home Health Services Reason For Visit: FALL WITH MULTIPLE RIB FRACTURE Discharge Diagnosis: Fall with multiple rib fractures and small hemothorax E coli UTI Condition on Discharge: Serious Activity: Resume your previous activity Lifting: Gradually increase as tolerated Bathing: No limitations Non-emergency contact: Primary Care Provider Call non-emergency contact if: you have any medication questions, your symptoms worsen, your pain is not controlled, your pain is worsening, your pain is unusual for you, your pain is concerning for you and you have a fever Follow-up/Referrals: Syeda Goldberg MD [Primary Care Provider] - Diet: Carb Consistent or DM2 Addtl Attending Provider Instructions: Please take all medications as instructed on discharge list below. For pain, feel free to use OTC NSAIDs such as Advil, Ibuprofen, or Naproxen to help you deal with the pain/discomfort. You may also use Tylenol OTC. You are being provided with a narcotic medication only to use for severe pain. It is recommended that you follow-up with your primary care physician (PCP) as scheduled below. This appointment is to ensure you are still doing well post- hospital discharge and that your pain and breathing are under control. 07/10/2019 11:40 AM Syeda Goldberg MD Department General Internal Medicine [facility] You were given a short course of antibiotics to treat a urinary tract infection. During this time, please avoid taking the methenamine, and restart only when your PCP advises it. It was a pleasure taking care of you! Please call if you have any questions or problems. You can reach a [facility] hospitalist on duty at [facility] 24 hours a day by calling [phone]. Take care of yourself. Mahnaz Kaba DO [facility] Hospitalist Pending Studies at Discharge: No Stand-Alone Forms: My [facility] Medications and DC Order Prescriptions: New nitrofurantoin monohyd/m-cryst 100 mg Capsule 100 mg PO BID Qty: 10 RF: 0 lidocaine 5 % Adhesive Patch,Medicated 1 patch transdermal QAM Qty: 15 RF: 1 oxycodone-acetaminophen [Percocet] 5-325 mg Tablet 1 tab PO Q6H PRN (Reason: severe pain) Qty: 10 RF: 0 Continued aspirin 81 mg tablet,chewable 81 mg PO QAM RF: 0 metformin 850 mg Tablet 850 mg PO BID RF: 0 cyanocobalamin (vitamin B-12) 1,000 mcg Tablet 1,000 mcg PO DAILY RF: 0 glimepiride 1 mg Tablet 1 mg PO QAM RF: 0 tamsulosin [Flomax] 0.4 mg Capsule 0.4 mg PO DAILY RF: 0 albuterol sulfate [ProAir HFA] 90 mcg/actuation Hfa Aerosol Inhaler 2 puff INHALATION QID PRN (Reason: SHORT OF BREATH) RF: 0 glucosamine-chondroitin [Osteo Bi-Flex] 250-200 mg Tablet 1 tab PO BID RF: 0 cinnamon bark [Cinnamon] 500 mg Capsule 2 tab PO BID RF: 0 duloxetine 30 mg Capsule,Delayed Release(Dr/Ec) 30 mg PO QAM RF: 0 omeprazole 20 mg Tablet,Delayed Release (Dr/Ec) 20 mg PO QAM RF: 0 iron 159 mg (45 mg iron) Tablet Extended Release 130 mg PO DAILY RF: 0 Probiotic 3 billion cell Capsule 3,000 mmu cells PO DAILY RF: 0 Caltrate 600 plus D 600 mg (1,500 mg)-800 unit Tablet,Chewable 1 tab PO 3XWK RF: 0 enalapril maleate [Vasotec] 5 mg tablet 5 mg PO DAILY RF: 0 cetirizine [Zyrtec] 10 mg tablet 10 mg PO HS RF: 0 Discontinued methenamine hippurate 1 gram Tablet 1 g PO BID RF: 0 Discharge Orders: Discharge Order (Routine); Ordered 07/07/19 Ordered By: Mahnaz Kaba Admission Data Admit Date/Time: 07/05/19 18:31 Attending Provider: Mahnaz Kaba Admit Provider: Ezio Leiva Primary Care Provider: Syeda Goldberg Other Providers: [employer]
--- NOTE | 2019-07-10 13:42 | Coding Query ---
To promote full compliance with coding requirements relating to patient care, physician participation is requested in all cases of product support rep uncertainty. Please assist us with the question(s) below: Coding Question: Please clarify below to the best of your knowledge as pathological fracture was only mentioned once in the 07/06 PN and not on DC summary. Thank you so much for your help! According to coding guidelines "a code for osteoporotic fracture, and not a traumatic fracture, should be used for any patient with known osteoporosis who suffers a fracture, even if the patient had a minor fall or trauma, if that fall or trauma would not usually break a normal, healthy bone." Please indicate below the type of fracture: ( ) Osteoporotic fracture of ribs ( x ) Traumatic fracture of ribs ( ) Other, please specify ( ) Unable to be determined MTDD
== END 2019-07-07 15:51 | disposition home health service (06) | DRG 183 ==
LOC: ED 08:49 → 2N 08:49 → SUATTDRO 14:41 → 2N 15:21